=== PATIENT | female | born 1945 | race Caucasian/White ===

== ENCOUNTER 2016-03-24 07:42 | Day surgery (SDC) | payer MEDICARE, OTHER ==
[~2016-03-24] VITALS: Ht 152.7 cm; Wt 78.1 kg
[2016-03-24] VITALS (10 sets, daily range): BP systolic 135–160; BP diastolic 64–82; PULSE 71–85; TEMP 97.8–97.9
[~2016-03-24 07:42] MED LIST: ALLEGRA 180MG180 MG PO; ALLEGRA180 MG PO; ALTACE 2.5MG T2.5 MG PO; AMARYL PO; AMARYL2 MG PO; ASPIR-LOW81 MG PO; ASPIRIN E.C. 8181 MG PO; CALCIUM600 MG PO; CALTRATE-600 W600 MG PO; CARTIA XT120 MG PO; CARVEDILOL6.25 MG PO; COREG 6.256.25 MG/TA PO; EC NAPROSYN500 MG PO; EPA FISH OIL1000 MG PO; ESTRACE PO; ESTRADIOL1 MG PO; FISH OIL1 IU PO; FORTAMET1000 MG PO; METFORMIN1000 MG PO; METOCLOPRAMIDE10 MG PO; MULTIPLE VITAMI1 TA7 PO; MULTIPLE VITAMI1 TAB PO; MVI; NAPROXEN500 M1 PO; PLAVIX 75MG TAB75 MG PO; PRILOSEC 20MG20 MG PO; PROTONIX20 MG PO; REGLAN 10MG10 MG/TAB PO; SIMCOR 1000 MG-1 TE1 PO; VITAMIN C BUFF500 MG PO; VITAMIN C500 MG PO; ZOCOR 80MG80 MG PO; ZOCOR80 MG PO
[2016-03-24 08:28] LABS: HEMATOCRIT 38.2 % (37.0-47.0); HEMOGLOBIN 12.4 g/dl (12.5-16.0); MEAN CELL VOLUME 84 fl (80.0-100.0); MEAN CORPUSCULAR HEMOGLOBIN 27 pg (27.0-31.0); MEAN CORPUSCULAR HGB CONC 33 g/dl (33.0-37.0); MEAN PLATELET VOLUME 9.3 fl (7.4-10.4); PLATELET COUNT 245 K/mm3 (130-400); RED BLOOD COUNT 4.53 M/mm3 (4.10-5.30); REDCELL DISTRIBUTION WIDTH-CV 13.2 % (11.5-14.5); WHITE BLOOD COUNT 7.2 K/mm3 (4.8-10.8)
[2016-03-24 08:30] LABS: INR 1.1 (0.8-3.0); PROTHROMBIN TIME 12.2 SECONDS (9.7-12.8)
[2016-03-24 08:43] LABS: CALCIUM 9.4 mg/dL (8.4-10.2); CREATININE, serum 0.63 mg/dL (0.52-1.25)
[2016-03-24] MEDS ORDERED: NATURAL IRON65 MG PO (08:48)
[2016-03-24] MEDS ORDERED: KLOR-CON 88 ME1 PO (08:51)
[2016-03-24] MEDS ORDERED: NIASPAN1000 MG PO (08:51)
[2016-03-24] MEDS ORDERED: MASON NATURAL1200 MG PO (08:53)
[2016-03-24] MEDS ORDERED: ZOCOR 40MG40 MG PO (08:56)
[2016-03-24] MEDS ORDERED: COZAAR 50MG50 MG/TAB PO (08:57)
[2016-03-24] MEDS ORDERED: REGLAN 10MG10 MG/TAB PO (09:01)
[2016-03-24] MEDS ORDERED: AMARYL4 MG PO (09:01)
[2016-03-24] MEDS ORDERED: ESTRACE0.5 MG PO (09:03)
[2016-03-24] MEDS ORDERED: SINGULAIR 110 MG/TAB PO (09:04)
[2016-03-24] MEDS ORDERED: FLONASE NASAL S16 GM NS (09:06)
[2016-03-24] MEDS ORDERED: SYNTHROID0.05 MG/TA PO (09:07)
[2016-03-24] MEDS ORDERED: ANTIVERT 25MG25 MG PO (09:08)
[2016-03-24] MEDS ORDERED: GLUCOPHAGE1000 MG PO (14:58)
[2016-03-24] MEDS ORDERED: PLAVIX 75MG TAB75 MG PO (14:58)
== END 2016-03-24 16:51 | disposition home or self-care (01) ==
LOC: COL.RAD 07:42
PROVIDERS: Internal Medicine Interventional Cardiology
DX: I25.10 Atherosclerotic heart disease of native coronary artery without angina pectoris (principal); R94.39 Abnormal result of other cardiovascular function study; R07.9 Chest pain, unspecified; I10 Essential (primary) hypertension; E11.9 Type 2 diabetes mellitus without complications; E78.5 Hyperlipidemia, unspecified; G47.33 Obstructive sleep apnea (adult) (pediatric); Z95.5 Presence of coronary angioplasty implant and graft; Z79.899 Other long term (current) drug therapy; Z79.82 Long term (current) use of aspirin; Z79.84 Long term (current) use of oral hypoglycemic drugs
CPT/HCPCS: C1760; J2250; J3010; Q9967

== ENCOUNTER → 2016-03-27 | Outpatient (CLI) | payer MEDICARE, OTHER ==
[~2016-03-27] MED LIST changes: +AMARYL4 MG PO; +ANTIVERT 25MG25 MG PO; +COZAAR 50MG50 MG/TAB PO; +ESTRACE0.5 MG PO; +FLONASE NASAL S16 GM NS; +GLUCOPHAGE1000 MG PO; +KLOR-CON 88 ME1 PO; +MASON NATURAL1200 MG PO; +NATURAL IRON65 MG PO; +NIASPAN1000 MG PO; +SINGULAIR 110 MG/TAB PO; +SYNTHROID0.05 MG/TA PO; +ZOCOR 40MG40 MG PO
== END ==
LOC: MC.RAD 10:00
DX: Z12.31 Encounter for screening mammogram for malignant neoplasm of breast (principal); R92.1 Mammographic calcification found on diagnostic imaging of breast

== ENCOUNTER → 2017-03-29 | Outpatient (CLI) | payer MEDICARE, OTHER | LOC: MC.RAD 09:56 | DX: Z12.31 Encounter for screening mammogram for malignant neoplasm of breast (principal) ==

== ENCOUNTER → 2018-04-08 | Outpatient (CLI) | payer MEDICARE, OTHER | LOC: MC.RAD 10:27 | DX: Z12.31 Encounter for screening mammogram for malignant neoplasm of breast (principal) ==

== ENCOUNTER → 2018-05-31 | Outpatient (CLI) | payer MEDICARE, OTHER | LOC: COL.RAD 09:46 | DX: J32.0 Chronic maxillary sinusitis (principal) ==

== ENCOUNTER 2018-09-30 10:30 | Outpatient (RCR) | payer MEDICARE, OTHER | END 2018-11-13 | disposition still patient (30) | LOC: MKS.ESL.PT | DX: M75.102 Unspecified rotator cuff tear or rupture of left shoulder, not specified as traumatic (principal); Z79.1 Long term (current) use of non-steroidal anti-inflammatories (NSAID) ==

== ENCOUNTER → 2018-12-17 | Outpatient (CLI) | payer MEDICARE, OTHER | LOC: COL.RAD 07:11 | DX: K57.30 Diverticulosis of large intestine without perforation or abscess without bleeding (principal); Z90.710 Acquired absence of both cervix and uterus; Z90.49 Acquired absence of other specified parts of digestive tract | CPT/HCPCS: Q9967 ==

== ENCOUNTER → 2019-08-04 | Outpatient (CLI) | payer MEDICARE, OTHER | LOC: MC.RAD 08:18 | DX: Z12.31 Encounter for screening mammogram for malignant neoplasm of breast (principal); N63.20 Unspecified lump in the left breast, unspecified quadrant ==

== ENCOUNTER → 2019-08-08 | Outpatient (CLI) | payer MEDICARE, OTHER | LOC: MC.RAD 09:07 | DX: N64.89 Other specified disorders of breast (principal); N63.10 Unspecified lump in the right breast, unspecified quadrant; N63.20 Unspecified lump in the left breast, unspecified quadrant | CPT/HCPCS: G0279 ==

== ENCOUNTER 2019-08-29 13:09 | Day surgery (SDC) | payer MEDICARE, OTHER ==
[2019-08-29] VITALS (12 sets, daily range): BP systolic 134–156; BP diastolic 64–75; PULSE 65–84; TEMP 98.3
[~2019-08-29] VITALS: Ht 152.4 cm; Wt 78.5 kg
[~2019-08-29 13:09] MED LIST changes: +CALCIUM CARBON650 M2 PO; -CALCIUM600 MG PO; +MULTIPLE VITAMI1 TA5 PO; -MULTIPLE VITAMI1 TAB PO; +VITAMINC500CH PO
[2019-08-29] MEDS ORDERED: BENICAR40 MG PO (13:54)
[2019-08-29] MEDS ORDERED: IMDUR 30MG30 MG/TAB PO (13:55)
[2019-08-29 14:18] LABS: HEMOGLOBIN 11.5 g/dl (12.5-16.0); INR 1.2 (0.8-3.0); MEAN CELL VOLUME 87 fl (80.0-100.0); MEAN CORPUSCULAR HEMOGLOBIN 28 pg (27.0-31.0); MEAN CORPUSCULAR HGB CONC 33 g/dl (33.0-37.0); MEAN PLATELET VOLUME 9.7 fl (7.4-10.4); PLATELET COUNT 245 K/mm3 (130-400); PROTHROMBIN TIME 13.2 SECONDS (9.7-12.8); RED BLOOD COUNT 4.06 M/mm3 (4.10-5.30); REDCELL DISTRIBUTION WIDTH-CV 13.8 % (11.5-14.5)
[2019-08-29 14:20] LABS: HEMATOCRIT 35.1 % (37.0-47.0)
[2019-08-29 14:21] LABS: PARTIAL THROMBOPLASTIN TIME 32.3 SECONDS (26.0-37.0)
[2019-08-29 14:28] LABS: BILIRUBIN,TOTAL 0.4 mg/dL (0.0-1.0); CALCIUM 9.3 mg/dL (8.4-10.2); CREATININE, serum 0.67 (0.52-1.25); POTASSIUM 4.3 mmol/L (3.4-5.0); TOTAL PROTEIN 6.9 gm/dL (6.4-8.2)
--- NOTE | 2019-08-29 15:28 | NUR ---
SEE MERGE FOR MEDICATION ADMINISTRATION TIMES AND INTRA AND POST SEDATION ASSESSMENTS.
--- NOTE | 2019-08-29 16:23 | NUR ---
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 PT IS ALERT AND ORIENTED. HEMOSTASIS NOTED TO R WRIST. PT HAS [address] DUE TO HEMOTOMA FORMATION AFTER LHC. FIRST TR BAND HAS 18 IN THE BAND AND TR BAND ABOVE HAS 10 IN THE BAND. JASKARAN NERI ASSUMING CARE OF PATIENT AT THIS TIME. PT HAS NO CONCERNS OR QUESTIONS AT THIS TIME.
--- NOTE | 2019-08-29 16:40 | NUR ---
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 pt is gcs 15, pwd with reg and unlabored respirations. TR band x2 to rt wrist and forearm. cms intact distal. 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 distal tr band on rt radial puncture site. wctm.
--- NOTE | 2019-08-29 17:58 | NUR ---
PT DOING WELL DURING RECOVERY, EATING DINNER AT THIS TIME. PROXIMAL tr BAND REMOVED AT THIS TIME. THERE ARE SOME FIRM AREAS THAT I MASSAGED, AND AT THIS TIME TISSUE PROXIMAL TO tr BAND IS SOFT. TR BAND STILL IN PLACE TO PUNCTURE SITE. CMS INTACT DISTAL.
--- NOTE | 2019-08-29 19:30 | NUR ---
TR band was deflated over the course of the last hour. At time of discharge, rt radial puncture site looked good. there was some firmness to tissue that had been just proximal to TR band, this was massaged and remained soft. bandaid to site, pressure dressing with 2x2 and coban was applied. cms intact distal. we reviewed dc and fu instructions, pt did not have any questions. iv was dc'd cath intact, dressing applied. pt was escorted to exit via wheelchair.
== END 2019-08-29 19:30 | disposition home or self-care (01) ==
LOC: COL.CAR 13:09
PROVIDERS: Internal Medicine Interventional Cardiology
DX: I25.118 Atherosclerotic heart disease of native coronary artery with other forms of angina pectoris (principal); R94.39 Abnormal result of other cardiovascular function study; I10 Essential (primary) hypertension; E11.9 Type 2 diabetes mellitus without complications; G47.33 Obstructive sleep apnea (adult) (pediatric); E78.5 Hyperlipidemia, unspecified; Z79.84 Long term (current) use of oral hypoglycemic drugs; Z79.52 Long term (current) use of systemic steroids; Z79.82 Long term (current) use of aspirin; Z79.51 Long term (current) use of inhaled steroids; Z79.02 Long term (current) use of antithrombotics/antiplatelets; Z88.2 Allergy status to sulfonamides
CPT/HCPCS: C1769; J1644; J2250; J3010; Q9967

== ENCOUNTER → 2020-02-11 | Outpatient (CLI) | payer MEDICARE, OTHER ==
[~2020-02-11] MED LIST changes: +BENICAR40 MG PO; +IMDUR 30MG30 MG/TAB PO
== END ==
LOC: MC.RAD 08:00
DX: N63.10 Unspecified lump in the right breast, unspecified quadrant (principal)

== ENCOUNTER 2020-04-30 10:53 | Day surgery (SDC) | payer MEDICARE ==
[~2020-04-30] VITALS: Ht 152.4 cm; Wt 78.6 kg
[2020-04-30] VITALS (10 sets, daily range): BP systolic 107–124; BP diastolic 51–71; PULSE 72–84; TEMP 98.2
[~2020-04-30 10:53] MED LIST changes: -IMDUR 30MG30 MG/TAB PO; +IMDUR 60MG60 MG/TAB PO
[2020-04-30 12:02] LABS: CALCIUM 9.7 mg/dL (8.4-10.2); CREATININE, serum 0.73 (0.52-1.25)
[2020-04-30 12:17] LABS: INR 1.1 (0.8-3.0); PROTHROMBIN TIME 12.7 SECONDS (9.7-12.8)
[2020-04-30 12:20] LABS: PARTIAL THROMBOPLASTIN TIME 31.2 SECONDS (26.0-37.0)
[2020-04-30 12:25] LABS: MEAN CELL VOLUME 88 fl (80.0-100.0); MEAN CORPUSCULAR HEMOGLOBIN 29 pg (27.0-31.0); MEAN CORPUSCULAR HGB CONC 33 g/dl (33.0-37.0); PLATELET COUNT 257 K/mm3 (130-400); RED BLOOD COUNT 4.21 M/mm3 (4.10-5.30); REDCELL DISTRIBUTION WIDTH-CV 13.2 % (11.5-14.5)
[2020-04-30 12:26] LABS: HEMATOCRIT 36.9 % (37.0-47.0)
--- NOTE | 2020-04-30 13:40 | NUR ---
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 NSR on monitor, gcs 15, pwd, no distress, rt groin site looks good, cms intact distal. Pt and daughter updated on poc. lunch ordered. call light in reach.
--- NOTE | 2020-04-30 15:00 | NUR ---
PT DOING WELL, SHE HAS BEEN ABLE TO EAT WITHNO PROBLEM. PT WAS ASSISTED TO BED GOOD, VOIDED LARGE AMT. NO PROBLEM. REPOSITIONED IN BED WITH HOB APPROX 20DEG. RT GROIN SITE CONTINUES TO LOOK GOOD, CMS INTACT DISTAL.
[2020-04-30] MEDS ORDERED: CARDENE 20MG CA20 M1 PO (16:07)
--- NOTE | 2020-04-30 16:45 | NUR ---
Pt is ready for departure. To exit at this time via wheelchair. Pt has been ambulatory to bathroom with steady gait. I have reviewed rx,dc and fu instructions with patient. She and her daughter have been able to speak with Keanu ROY to discuss discharge plan as well. no questions at time of departure. IV is dc'd with cath intact dressing applied. Rt groin site remains soft without evidence of bleeding at time of departure.
== END 2020-04-30 16:45 | disposition home or self-care (01) ==
LOC: COL.CAR 10:53
PROVIDERS: Internal Medicine Interventional Cardiology
DX: I25.119 Atherosclerotic heart disease of native coronary artery with unspecified angina pectoris (principal); I10 Essential (primary) hypertension; E11.9 Type 2 diabetes mellitus without complications; G47.33 Obstructive sleep apnea (adult) (pediatric); E78.5 Hyperlipidemia, unspecified; Z79.84 Long term (current) use of oral hypoglycemic drugs; Z99.89 Dependence on other enabling machines and devices; Z79.899 Other long term (current) drug therapy; Z79.82 Long term (current) use of aspirin; Z79.02 Long term (current) use of antithrombotics/antiplatelets; Z88.2 Allergy status to sulfonamides; Z20.822 Contact with and (suspected) exposure to COVID-19
CPT/HCPCS: C1760; C1894; J1644; J2250; J3010; Q9967

== ENCOUNTER → 2020-07-15 | Outpatient (CLI) | payer MEDICARE ==
[~2020-07-15] MED LIST changes: +BACTROBAN15 GM TOP; +CARDENE 20MG CA20 M1 PO; +PRAVACHOL 40MG40 MG PO; +RANEXA 500MG T500 MG PO; +STROMECTOL3 MG PO
== END ==
LOC: MC.RAD 09:45
DX: Z12.31 Encounter for screening mammogram for malignant neoplasm of breast (principal)

== ENCOUNTER 2020-09-09 12:49 | Outpatient (CLI) | payer MEDICARE ==
[~2020-09-09] VITALS: Ht 152.4 cm; Wt 76.8 kg
[~2020-09-09 12:49] MED LIST changes: -BACTROBAN15 GM TOP; -PRAVACHOL 40MG40 MG PO; -RANEXA 500MG T500 MG PO; -STROMECTOL3 MG PO
[2020-09-09 14:00] VITALS: BP 107/55; PULSE 90; TEMP 97
[2020-09-09] MEDS ORDERED: STROMECTOL3 MG PO (14:14)
[2020-09-09 14:15] VITALS: BP 100/55; PULSE 91
[2020-09-09] MEDS ORDERED: PRAVACHOL 40MG40 MG PO (14:19)
[2020-09-09] MEDS ORDERED: RANEXA 500MG T500 MG PO (14:19)
[2020-09-09] MEDS ORDERED: NATURAL IRON65 MG PO (14:20)
[2020-09-09] MEDS ORDERED: BACTROBAN15 GM TOP (14:22)
[2020-09-09 14:30] VITALS: BP 99/52; PULSE 91
[2020-09-09 14:45] VITALS: BP 105/51; PULSE 91; TEMP 96.5
[2020-09-09 15:00] VITALS: BP 112/53; PULSE 94
[2020-09-09 15:15] VITALS: BP 116/59; PULSE 86
--- NOTE | 2020-09-09 15:36 | NUR ---
Pt tolerated infusion without issue. INT DC'd with catheter intact. Pt escorted out to ED entrance, gait steady.
== END 2020-09-09 15:38 | disposition home or self-care (01) ==
LOC: EUO 12:49
DX: R50.9 Fever, unspecified (principal); R05 Cough; Z23 Encounter for immunization
CPT/HCPCS: Q0244

== ENCOUNTER → 2021-04-06 | Outpatient (CLI) | payer MEDICARE ==
[~2021-04-06] MED LIST changes: +BACTROBAN15 GM TOP; +PRAVACHOL 40MG40 MG PO; +RANEXA 500MG T500 MG PO; +STROMECTOL3 MG PO
== END ==
LOC: MC.RAD 09:42
DX: Z12.31 Encounter for screening mammogram for malignant neoplasm of breast (principal)

== ENCOUNTER → 2021-04-13 | Outpatient (CLI) | payer MEDICARE | LOC: MC.RAD 14:08 | DX: N64.89 Other specified disorders of breast (principal) ==

== ENCOUNTER → 2023-02-23 | Outpatient (CLI) | payer MEDICARE | LOC: MC.RAD 09:45 | DX: R92.8 Other abnormal and inconclusive findings on diagnostic imaging of breast (principal) ==